=== PATIENT | female | born 1960 | race Caucasian/White ===

== ENCOUNTER 2024-06-11 08:18 | Day surgery (SDC) | payer SELFPAY ==
[2024-06-11 08:49] VITALS: BP 116/75; PULSE 68; RESP 16; TEMP 36.5; O2SAT 100; BMI 27.0
--- NOTE | 2024-06-11 09:59 | HP.PCM_ITS ---
HPI - General General Date of Admission: 06/11/24 Date of Service: 06/11/24 HPI Narrative GAGE REVELES, is a 63 F who presents for bilateral earlobe repair from torn earlobes. [facility] Medical History (Updated 02/11/24 @ 12:[address] Dina Loya MD) History of vision disorder History of gastroesophageal reflux (GERD) History of osteopenia History of high cholesterol History of carpal tunnel syndrome History of seasonal allergies Home Medications ?Medication ?Instructions ?Recorded ?Last Taken ?Type Botox Cosmetic 100 unit 20 unit IM ONCE #1 ea 02/11/24 Unknown Clinic intramuscular solution (onabotulinumtoxinA (cosmetic)) cholecalciferol (vit D3) 137.5 mcg 1 tab PO DAILY 02/11/24 Unknown History (5,500 unit)-vit K2 200 mcg tablet (DosoKap) famotidine 20 mg tablet (Pepcid) 20 mg PO QHS 02/11/24 Unknown History Allergy/AdvReac Type Severity Reaction Status Date / Time Environmental Allergies: Allergy Mild Other Verified 06/11/24 08:48 Uncoded (seasonal) Family History (Updated 02/11/24 @ 11:55 by Trang Severino) Father Alcoholism Asthma Respiratory disease Mother Osteoporosis Hypertension High cholesterol Sister Anxiety Depression Surgical History (Updated 02/11/24 @ 11:42 by Trang Severino) History of carpal tunnel release Vital Signs Vital Signs Vital Signs: 06/11/24 08:49 06/11/24 08:49 Temperature 97.7 F L Temperature Source Temporal Pulse Rate 68 Respiratory Rate 16 Respiratory Pattern Normal Blood Pressure 116/75 Blood Pressure Mean 88 Blood Pressure Source Monitor Blood Pressure Position Semi-Fowlers Blood Pressure Location Left Arm Pulse Ox 100 Oxygen Delivery Method Room Air Weight Weight: 147 lb 11.355 oz Body Mass Index (BMI) 27.0 Physical Exam Narrative Patient with elongated holes from bilateral torn earlobes. Const alert, oriented x3, no apparent distress, average body habitus and well nourished General Appearance: cooperative and well developed Orientation / Consciousness: oriented to person, oriented to place and oriented to time HEENT head/scalp atraumatic, external ears normal and external nose normal Head and Scalp: normal to inspection, normocephalic, atraumatic and abrasion Face and Sinus: normal facial exam and face symmetric Nose: external nose normal External Ear: external ears normal External Auditory Canal: EAC's normal Mouth: lips normal Eyes PERRL, EOMs intact bilaterally and conjunctivae normal General Eye: normal appearance of both eyes Periorbital: periorbital findings normal Eyelid: eyelids normal Conjunctiva: conjunctiva normal Pupil: PERRL Neck full ROM Lymph Lymphatic: no lymphadenopathy noted Chest inspection of chest normal Breast/Axilla Palpation: no axillary lymphadenopathy Resp normal respiratory effort, normal air movement and clear to auscultation bilaterally Auscultation: clear to auscultation bilaterally Cardio regular rate, regular rhythm, S1 normal heart sound, S2 normal heart sound and no murmurs Rate: regular rate Rhythm: regular rhythm GI soft to palpation and non-tender Extremity normal to inspection and full ROM General Extremity: normal exam except as noted Skin General Skin Exam: turgor normal Neuro oriented x3, CN's II-XII intact bilaterally, moves all extremities, no focal motor deficits and no sensory deficits noted Sensorium / Orientation: awake, alert, oriented to person, oriented to place and oriented to time Speech: speech normal Gait (Neuro): normal gait Psych mental status grossly normal Attention / Concentration: concentration grossly intact Memory / Cognition: memory grossly intact Assessment & Plan Assessment/Plan (1) Encounter for cosmetic surgery: PLAN: Plan Patient for repair of bilateral earlobes.
[2024-06-11 10:41] VITALS: BP 116/63; BP 125/69; O2SAT 100; O2SAT 95; O2SAT 96; O2SAT 97; O2SAT 98; O2SAT 99
[2024-06-11] MEDS: Lidocaine 1% /Epi 1:100 9 ML, Sodium Bicarbonate 1 MEQ OPERA.SITE (11:28)
--- NOTE | 2024-06-11 11:45 | DCINST_ITS ---
Discharge Instructions Dressing / Incision Additional Dressing/Incision Instructions:: Keep your back elevated (recliner position) for 1-2 nights. Take the oral antibiotic (Keflex) 2 times a day until finished. Keep the Steri-Strips dry. You may remove the Steri-Strips in 12 to 14 days. Follow Up Care Please Follow Up With: Dina Loya MD When: 1 to 2 weeks. Test Results: Test results from this visit will be discussed in further detail at your follow- up appointment, if applicable. Discharge Plan Admission Attending Provider: Dina Loya Primary Care Provider: FRANDY HARPER Instructions Print Language: Icelandic Discharge Orders/Prescriptions Prescriptions: New cephalexin 500 mg capsule 500 mg PO BID 5 Days Qty: 10 0RF No Action DosoKap 137.5-200 mcg tablet 1 tab PO DAILY famotidine [Pepcid] 20 mg tablet 20 mg PO QHS Botox Cosmetic 100 unit recon soln 20 unit IM ONCE Qty: 1 0RF Referrals / Follow Up: FRANDY HARPER [Other] FRANDY HARPER [Other] Disposition Disposition (needs filled in before D/C Order can be placed): Home, Self Care
--- NOTE | 2024-06-11 11:48 | PCM.OPRPT ---
Problems Associated Problem List Diagnoses (1) Encounter for cosmetic surgery: Report of Operation Date of Procedure: 06/11/24 Pre-Operative Diagnosis: Bilateral elongated earlobe holes. Post-Operative Diagnosis: Same Surgery/Procedure Performed:: Bilateral earlobe repair with intermediate closure. Surgeon: Dina Loya Type of Anesthesia: Local Estimated Blood Loss (mL): Minimal Description of Procedure: Yanelis comes in today for bilateral earlobe repair from elongated earlobe holes. The procedure was reviewed with her. Informed consent was obtained. The patient is brought to the operating room and placed on the operating room table in the supine position. The bilateral earlobes are prepped and draped in the usual sterile fashion. 1% Xylocaine with epinephrine is used for local anesthetic. Following this, the holes are excised both anteriorly and posteriorly and brought out intact. Hemostasis is controlled with cautery. The incisions are then closed using Vicryl suture in the subcutaneous tissue. Skin edges are approximated with a running plain gut suture both on the anterior and posterior earlobe surface. The identical procedure was performed on the opposite side. The sites are dressed with Dermabond and Steri-Strips. She tolerated the procedure well was taken to the recovery area in an awake and stable condition. Needle and sponge counts are correct. Complications None Admit VTE Documentation VTE Mechan Device Prophylaxis: None Reason prophylaxis not ordered:: Treatment Not Indicated
[2024-06-11 12:01] VITALS: BP 116/75; BP 128/68; PULSE 62; RESP 16; TEMP 36.2; O2SAT 100
== END 2024-06-11 12:04 | disposition home or self-care (01) ==
LOC: SDC 08:18 → AC 08:20
PROVIDERS: Referring Provider Plastic Surgery; Visit Provider Plastic Surgery
PROC: (CPT 11442; principal; 2024-06-11 09:10)
DX: H61.113 Acquired deformity of pinna, bilateral (principal); K21.9 Gastro-esophageal reflux disease without esophagitis
CPT/HCPCS: 11442 ×2; 12051